=== PATIENT | female | born 1965 | race Caucasian/White ===

== ENCOUNTER 2016-08-16 06:58 | Day surgery (SDC) | payer OTHER ==
[2016-08-16] VITALS (21 sets, daily range): BP systolic 84–116; BP diastolic 50–74; PULSE 60–83; RESP 12–22; Ht 170.2 cm; Wt 64.0 kg
[~2016-08-16] VITALS: Ht 170.2 cm; Wt 64.0 kg
[~2016-08-16 06:58] MED LIST: BISA-57 PO; DOCU-144 PO; HYDR-906 PO; OMEP20CA16 PO; RANI300T PO
[2016-08-16] MEDS ORDERED: POLYMYXIN/BACITRACIN 1L IRRIG IRR ONE (08:00)
[2016-08-16] MEDS ORDERED: CEFAZOLIN 1 GM/50 ML (PMX) 50 ML IVPB ONE ×2 (08:00→09:56)
[2016-08-16] MEDS ORDERED: SOD CHLORIDE 0.9% 1,000 ML IV SCH (08:00)
[2016-08-16] MEDS ORDERED: SOD CHLORIDE 0.9% 500 ML ONE (08:40)
[2016-08-16] MEDS ORDERED: LIDOCAINE 1% (MDV) 20 ML INJ ONE (08:40)
[2016-08-16] MEDS ORDERED: HEPARIN 1000 UNITS/ML 10 ML INJ ONE (08:40)
[2016-08-16] MEDS ORDERED: LIDOCAINE 1%/EPI 30 ML INJ ONE (08:43)
[2016-08-16] MEDS ORDERED: FENTAnyl 50 MCG/ML VIAL ONE (09:56)
[2016-08-16] MEDS ORDERED: MIDAZOLAM 1 MG/ML 2 ML INJ ONE (09:56)
--- NOTE | 2016-08-16 11:56 | RADRPT ---
PROCEDURE: FLUOROSCOPIC AND ULTRASONOGRAPHIC-GUIDED PLACEMENT OF RIGHT CHEST PORT. CLINICAL INDICATION: History of gastric cancer. Venous access for chemotherapy. TECHNIQUE: INTRAPROCEDURE MEDICATIONS: PB antibiotic solution 40 cc applied topically. 1 gram Ancef intravenous ly, intra-op. IV Versed and Fentanyl per protocol. Informed consent was obtained. The procedure, risks, benefits, complications and alternatives were explained to the patient. Risks including bleeding, infection, and pneumothorax were explained. The patient understood and was willing to proceed. A procedural pause was performed. The patient's name, date of , and procedure to be performed w ere verified. The central line was inserted with all elements of maximal sterile barrier technique. All of the fol lowing were used: head covering, facial mask, sterile gown, sterile gloves, a large sterile sheet, h and hygiene, and 2% chlorhexidine for cutaneous antisepsis. The right neck and anterior/superior chest wall were prepped and draped in usual sterile fashion. Limited sonography of the right neck was then performed. Noted is a patent right internal jugular ve in. Following the local injection of 1% lidocaine, the right internal jugular vein was punctured under s onographic guidance with a 20-gauge needle through which a 0.018 inch floppy tip guidewire was advan selena into the superior vena cava with fluoroscopic guidance. The tract was dilated to 5 [place] and the wire was then replaced with a 0.035 in Amplatz guidewire. Serial dilatation was then performed and a 7 [place] peel away sheath was introduced. A site just inferior to the clavicle in the superior anterior right chest wall was localized. One pe rcent lidocaine was used as local anesthesia. A transverse 2.5 cm incision was made utilizing a 15 b lade scalpel. Utilizing blunt dissection a subcutaneous pocket was created inferior to the incision. The cavity was flushed with approximately 40 cc of PB antibiotic solution. The catheter was tunneled underneath the skin from the newly created pocket to the puncture site in the neck. The central line catheter was pulled through the tract. The catheter was then advanced thr ough the sheath until the tip was positioned in the right atrium. The peel-away sheath was removed. The catheter was flushed and clamped. The 6.6 [place] catheter was then connected to the Angiodynamics power port. The port was then placed into the pocket. Prior to closing the instrument and sponge count was verified and was correct. The subcutaneous tissue was closed with 3-0 Vicryl interrupted suture. The skin at the site of the pock et and in the neck was closed with 4-0 Vicryl suture in a running subcuticular technique. The port w as flushed with 1500 units of heparin in 1.5 cc utilizing a Basurto needle. The needle was removed. A dressing was applied. The patient tolerated procedure well. COMPARISON: None. FINDINGS: Ultrasound images were recorded and stored in the patient's medical record. Final radiographic images demonstrate the tip of the catheter in the upper right atrium. A total of 0.2 minutes of fluoroscopy time was used. The ultrasound images demonstrate the needle entering th e internal jugular vein. IMPRESSION: 1. Successful ultrasonographic and fluoroscopic guided placement of right chest power port. RPTAT: QQ .Marco Antonio De La Cruz MD, Date Time Electronically viewed and signed by .Marco Antonio De La Cruz MD, MD on 08/16/2016 11:56 .R/
--- NOTE | 2016-08-16 12:55 | RADRPT ---
PROCEDURE: Ultrasound guidance for placement of needle in right internal jugular vein. CLINICAL INDICATION: Venous access. TECHNIQUE: Prior to the procedure, informed consent was obtained. Risks including bleeding, infection, and pneu mothorax were explained to the patient. The patient understood and was willing to proceed. A procedu ral pause was performed. The patient's name, date of , and procedure to be performed were verif ied. The central line was inserted with all elements of maximal sterile barrier technique. All of th e following were used: head covering, facial mask, sterile gown, sterile gloves, a large sterile she et, hand hygiene, and 2% chlorhexidine for cutaneous antisepsis. The right neck and anterior/super ior chest wall was prepped and draped in usual sterile fashion. Limited sonography of the right neck was then performed. Noted is a patent right internal jugular ve in. Ultrasound images were recorded and stored in the patient's medical record. Following the local injection of Xylocaine, the right internal jugular vein was punctured under sono graphic guidance with a 20-gauge needle through which a 0.018 inch floppy tip guidewire was advanced into the superior vena cava. The patient tolerated the procedure well. The remainder of the proce dure was performed and dictated under separate cover. COMPARISON: None. FINDINGS: The ultrasound images demonstrate a patent right internal jugular vein. The subsequent images demon strate the needle entering the right internal jugular vein. IMPRESSION: 1. Ultrasound guidance for a needle placement in right internal jugular vein. RPTAT: QQ .Marco Antonio De La Cruz MD, Date Time Electronically viewed and signed by .Marco Antonio De La Cruz MD, on 08/16/2016 12:55 .R/
== END 2016-08-16 13:09 | disposition home or self-care (01) ==
LOC: SDS 06:58
PROVIDERS: ATTEND Internal Medicine Hematology & Oncology
DX: C16.9 Malignant neoplasm of stomach, unspecified (principal)
CPT/HCPCS: 36561; 76942; J0690; J1644; J2250; J3010; J7040; C1788

== ENCOUNTER 2018-10-25 07:49 | Day surgery (SDC) | payer OTHER ==
[2018-10-25] VITALS (8 sets, daily range): BP systolic 95–116; BP diastolic 56–73; PULSE 17–82; RESP 16–52; Ht 165.1 cm; Wt 58.2 kg
[~2018-10-25] VITALS: Ht 165.1 cm; Wt 58.2 kg
[~2018-10-25 07:49] MED LIST changes: -BISA-57 PO; +CEFAZOLIN 2 GM/50 ML (PMX) 50 ML IVPB ONE; -DOCU-144 PO; -HYDR-906 PO; -OMEP20CA16 PO; -RANI300T PO; +SOD CHLORIDE 0.9% 1,000 ML IV SCH
--- NOTE | 2018-10-25 08:01 | PREAC ---
Date/Time of Note Date/Time of Note DATE: 10/25/18 TIME: 08:00 Anesthesia Eval and Record Evaluation Time Pre-Procedure Interview DATE: 10/25/18 TIME: 08:00 Age 53 Sex female NPO: 8 hrs Preoperative diagnosis hx stomach cancer Planned procedure removal portacath Past Medical History Past Medical History: Includes GI: Other (stomach cancer) Surgery & Anesthesia Issues No known issue Meds Anticoagulation: No Beta Jason within 24 hr: No Reason Beta Jason not given: Pt. not on B-Jason No Active Prescriptions or Reported Meds Current Medications Sodium Chloride 1,000 ml @ 75 mls/hr [id number] IV ; Start 10/25/18 at 06:00; Stop 10/25/18 at 19:19 Meds reviewed: Yes Allergies Coded Allergies: No Known Drug Allergies (Verified Allergy, Unknown, 10/25/18) Allergies Reviewed: Yes Labs/Studies Labs Reviewed: Reviewed by anesthesiologist test: Negative Pre-procedure Exam Airway: Adequate mouth opening, Adequate thyromental dist Mallampati: Mallampati II Teeth: Normal Lung: Normal Heart: Normal ASA Physical Status ASA physical status: 2 Emergency: None Planned Anesthetic General/MAC: LMA Planned Pain Management Parenteral pain med, Local by surgeon Pre-operative Attestations Prior to commencing anesthesia and surgery, the patient was re-evaluated, there was verification of: *The patient's identity *The results of appropriate recent lab work and preoperative vital signs *The above evaluation not changing prior to induction *Anesthetic plan, risk benefits, alternative and complications discussed with patient/family; questions answered; patient/family understands, accepts and wishes to proceed. SPIKE SUAREZ Oct 25, 2018 08:01
[2018-10-25] MEDS ORDERED: PROPOFOL 20 ML ONE ×2 (08:34→10:00)
[2018-10-25] MEDS ORDERED: CEFAZOLIN 1 GM INJ ONE (08:34)
[2018-10-25] MEDS ORDERED: FENTAnyl 50 MCG/ML VIAL ONE (08:34)
[2018-10-25] MEDS ORDERED: LIDOCAINE 2% (SDV) 5 ML INJ ONE (08:34)
[2018-10-25] MEDS ORDERED: LIDOCAINE 1%/EPI (1:100,000) (MDV) 20 ML ONE (09:18)
[2018-10-25] MEDS ORDERED: MEPERIDINE 25 MG INJ IV PRN (09:30)
[2018-10-25] MEDS ORDERED: ONDANSETRON 4 MG INJ IV PRN (09:30)
[2018-10-25] MEDS ORDERED: FENTAnyl 50 MCG/ML VIAL IV PRN ×3 (09:30)
[2018-10-25] MEDS ORDERED: OXYCODONE/ACETAMINOPHEN (5/325) TAB PO PRN ×2 (09:30)
[2018-10-25] MEDS ORDERED: ONDANSETRON 4 MG INJ ONE (09:50)
[2018-10-25] MEDS ORDERED: DEXAMETHASONE 4 MG/ML 5 ML INJ ONE (09:52)
--- NOTE | 2018-10-25 10:11 | SIPON ---
Date/Time of Note Date/Time of Note DATE: 10/25/18 TIME: 10:10 Operative Report Preoperative Diagnosis Need for chemo port removal right subclavian location Postoperative Diagnosis Same Operation/Procedure Performed Removal of chemotherapy port right subclavian location Surgeon see signature line content assistant Dr Cabrera Anesthesia: general Estimated blood loss: 0 - 10 ml's Transfusion Required none Specimen Chemotherapy port gross only Grafts/Implants none Complications none KYLEE SALAZAR MD Oct 25, 2018 10:11
--- NOTE | 2018-10-25 10:25 | PAC ---
Date/Time of Note Date/Time of Note DATE: 10/25/18 TIME: 10:24 Post-Anesthesia Notes Post-Anesthesia Note Last documented vital signs BP 107/66 HR 84 SPO2 100% Temp 97.9 RR 14 Vital Signs Date Temp Pulse Resp B/P (MAP) Pulse Ox O2 O2 Flow FiO2 Time Delivery Rate 10/25/18 98.0 64 16 103/61 100 Room Air 08:48 (75) Activity: WNL Respiratory function: WNL Cardiovascular function: WNL Mental status: Baseline Pain reasonably controlled: Yes Hydration appropriate: Yes Nausea/Vomiting absent: Yes PSIKE SUAREZ Oct 25, 2018 10:25
--- NOTE | 2018-10-25 12:35 | OPR ---
DATE OF OPERATION: 10/25/2018 PREOPERATIVE DIAGNOSES: History of breast cancer, need for removal of chemotherapy port from the rig ht subclavian location. POSTOPERATIVE DIAGNOSES: History of breast cancer, need for removal of chemotherapy port from the ri ght subclavian location. PROCEDURE: Removal of chemotherapy port from right subclavian location. ANESTHESIA: General. ANESTHESIOLOGIST: Nurse gift packer, Frederick Munson. SURGEON: Jordy Martínez MD HOG BUYER: Mo Cabrera MD INDICATIONS FOR PROCEDURE: The patient is known to me. I treated her for breast cancer. She succes sfully completed her treatment and requested removal of her chemo port. She consented and was schedu led for surgery. DESCRIPTION OF PROCEDURE: The patient was brought to the operating theater, placed under general ane sthesia. She was then put in the Trendelenburg position. The right anterior thorax was prepped and draped in usual sterile fashion. The previous surgical incisional scar directly over the port was re incised with a #10 blade scalpel. Subcutaneous tissue was dissected with cautery. The port was then elevated and dissected free of adhesions and gently removed while pressure was held in an infraclavi cular location. The port appeared to be grossly intact. It was sent for gross pathologic analysis t o document that it was intact. The wound was then irrigated. Minimal bleeding was controlled with c autery. The area was infiltrated with 1% lidocaine local anesthetic with epinephrine. The skin was then reapproximated with a 5-0 PDS suture in subcuticular fashion, and benzoin and Steri-Strips were applied. The patient tolerated procedure well. Estimated blood loss was 5 mL. There were no compli cations and the patient was transported in stable condition to the recovery room. Dictated By: JORDY MARTÍNEZ MD TL/NTS Conf#: [id number] DID#: [id number]
== END 2018-10-25 11:20 | disposition home or self-care (01) ==
LOC: SDS 07:49
PROVIDERS: ATTEND Surgery Surgical Oncology
DX: Z45.2 Encounter for adjustment and management of vascular access device (principal); Z85.3 Personal history of malignant neoplasm of breast
CPT/HCPCS: 36590; 84703; 88300; J0690; J1100; J2405; J3010; Z7512; Z7610